=== PATIENT | male | born 1930 | race Caucasian/White ===

== ENCOUNTER 2016-07-27 12:01 | Inpatient (IN) | payer MEDICARE ==
[~2016-07-27] VITALS: Ht 170.2 cm; Wt 68.1 kg
--- NOTE | ~2016-07-27 | HP ---
ADMIT: 07/27/2016 RM/LOC: [facility] MR#: [id number] 2620 [facility] [address] [place] [id number] [place] [address] History and Physical SEX: M AGE: 85 : 1930 DATE OF SERVICE: 07/27/2016 CHIEF COMPLAINT: Third-degree AV block. HISTORY OF PRESENT ILLNESS: Ilia is an 85-year-old, white male, who normally resides at the [facility] in [place], [place], who happened to be in [place] today to see the Wound Care doctor and his eye doctor. 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 He was subsequently transferred to the emergency room where workup showed him to have third-degree AV block by EKG. Hemodynamically, he was stable and minimally asymptomatic. He noted just a little bit of dizziness, but has otherwise denied any chest pain, dyspnea on exertion, chest heaviness, orthopnea, PND, lower extremity swelling or edema, cough. He also denies any vomiting, diarrhea, rash, fevers. He was subsequently admitted to the fourth floor PCU unit for further observation and management of his current cardiac condition. PAST MEDICAL HISTORY: Remarkable for, and this is obtained from old records at the [facility] in [place]. These include: 1. Spinal stenosis. 2. Gout. 3. Macular degeneration. 4. 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 5. Gastroesophageal reflux disease. 6. Recent urinary tract infection requiring ciprofloxacin through 07/29/2016. 7. Depression. PAST SURGICAL HISTORY: Suprapubic catheter. SOCIAL HISTORY: He currently resides at the [facility]. He is wheelchair-bound. It should be noted that he is a poor historian, and so obtaining detailed history and some of this is difficult. ALLERGIES: INCLUDE LEVAQUIN AND PROTONIX. MEDICATIONS: His outpatient medications include: 1. A\T\D ointment applied to the buttocks daily p.r.n. 2. Cipro 250 mg p.o. b.i.d. for 10 days to be completed on 07/29/2016. 3. Cough drops daily p.r.n. 4. Debrox drops 3 drops in the left ear at bedtime on . 5. Dulcolax 10 mg suppository daily p.r.n. constipation. 6. Dulcolax 5 mg p.o. daily. 7. Iron sulfate 325 mg daily. 8. Fleets enema rectally daily p.r.n. 9. An eye vitamin. 10.Keflex 250 mg p.o. at bedtime for urinary prophylaxis. 11.Lasix 20 mg daily. ADMIT: 07/27/2016 RM/LOC: [address] [place] [address] MR#: [id number] [address] [place] [phone] [place] [address] History and Physical SEX: M AGE: 85 : 1930 12.Lidocaine 2% applied to the buttocks q.12 p.r.n. 13.Loperamide 2 mg q.8 hours p.r.n. 14.Claritin 10 mg daily p.r.n. 15.Maalox 15-30 mL q.4 hours p.r.n. 16.Milk of magnesia 30 mL daily p.r.n. 17.Mineral oil 15 mg b.i.d. 18.Famotidine 20 mg b.i.d. 19.Remeron 30 mg at bedtime. 20.Tylenol 650 mg q.4 p.r.n. 21.Robitussin DM 10 mL q.4 p.r.n. FAMILY HISTORY: Noncontributory. REVIEW OF SYSTEMS: As per HPI. All others are reviewed and are negative. PHYSICAL EXAMINATION: VITAL SIGNS: His blood pressure is 124/38, pulse 38, respirations 16, temp 97.0, O2 saturation is 94% on room air. GENERAL: He is awake, alert, no acute distress, though he is a poor historian. HEENT: Normocephalic, atraumatic. NECK: Supple. No lymphadenopathy. No thyromegaly. No JVD. HEART: Regular, markedly bradycardic. No murmurs. LUNGS: Clear to auscultation bilaterally. ABDOMEN: Soft, nontender, and nondistended. No rebound guarding or masses. He does have a suprapubic catheter noted to be in place. EXTREMITIES: No cyanosis, clubbing, or edema. LABORATORY AND X-RAY DATA: EKG done through the emergency department does show a third-degree AV block. CBC shows a white count of 4, hemoglobin 11.7, and a platelet of 166. INR is 1.2. Chest x-ray, minimal left basilar opacity, probable atelectasis. CMP without clinically significant abnormalities. CK is 31. ProBNP is 744. Troponin is less than 0.015. TSH 2.1. Free T4 1.3. ASSESSMENT: 1. Third-degree AV block. ADMIT: 07/27/2016 RM/LOC: 413 [facility] MR#: [id number] [address] [place] [id number] [place] [address] History and Physical SEX: M AGE: 85 : 1930 2. Wheelchair bound. 3. Spinal stenosis. 4. Suprapubic catheter. 5. Sacral decubitus. 6. Depression. PLAN: MAURISIO has already been consulted and seen the patient. Echocardiogram is pending. Plan at this time will be to maintain Ilia on RAYA'S and SCD's. He will be monitored on telemetry. We will have Social Work and PT/OT consult. A decision is pending on whether or not he is a candidate for a pacemaker. Further management will be dependent on clinical course and [facility] recommendations. Russ Porras MD/ hui JOB #: [id number] CC: Russ Porras, Attending Physician Russ Porras, Family Physician
--- NOTE | ~2016-07-27 | EEP ---
Initial Pacemaker Generator Implant Report Demographics Patient Name SUE MORILLO Jr Gender Male Patient Number [id number] Race Visit Number [id number] Ethnicity Corporate ID Room Number 413 Accession Number [id number] Height 175.26 cm Date of 1930 Weight 72.12 kg Age 85 year(s) BSA 1.87 m Referring Physician Chandrika Garcia MD BMI 23.48 kg/m Implanting Physician Chandrika Garcia MD Date of Study 07/28/2016 Assisting Physician Performing Physician Chandrika Garcia MD The procedure was explained in detail to the patient. Risks, complications and alternative treatments were reviewed. Written consent was obtained. Medications reviewed with patient prior to procedure. Conclusions Implantable Device Summary Summary Successful Dual Chamber Pacemaker implantation. Recommendations A chest X-ray and pacemaker check should be performed in the morning. A wound check should be performed in 7 days. Complications No complications. Procedure Procedure Type Pacemaker:Initial Insertion (generator and leads), Dual Lead PM Insert A&V Leads Indications AV block complete. Procedure Description The patient was brought to the electrophysiology laboratory in a fasting state non sedated state. A baseline ECG was recorded. Informed consent was obtained in the written and verbal form after the risks and benefits were explained. The patient had no further questions and agreed to proceed. A grounding pad was placed on the patient's left thigh. A defibrillator was configured to deliver shocks via self-adhesive lateral defibrillator pads. The planned puncture-incision site(s) were clipped and prepped with ChloraPrep and draped in the usual sterile manner. Conscious sedation, supplemental oxygen, and pain control medications were delivered by a registered nurse under physician guidance. Surface ECG rhythm, blood pressure measurement, and pulse oximetry were monitored throughout the procedure. 2 % Lidocaine with bupivacaine was used in the infraclavicular area and an incision was made. Subclavian access was obtained and guidewires were placed into the SVC. 2 % Lidocaine with bupivacaine was used inferiorly to the incision. Blunt dissection anterior to the Pectoralis Fascia was used to form the pacemaker pocket. Over one wire, an intravenous sheath and dilator were placed in the superior vena cava under fluoroscopic vision. Through the sheath, the ventricular lead was then placed into the right ventricular apex under fluoroscopic vision and tested. The sheath was removed. The lead was sutured to the Pectoralis fascia using non-absorbable suture. Over the other wire, an intravenous sheath and dilator were placed in to the superior vena cava under fluoroscopic vision. Through the sheath, the atrial lead was then placed in the right atrium under fluoroscopic vision and tested. The sheath was removed. The lead was sutured to the Pectoralis Fascia using non-absorbable sutures. The leads were then connected to the pulse generator and screwed tight. The pocket was irrigated with antibiotic solution. The lead(s) and pulse generator were then placed into the pacemaker pocket. The incision was then closed. It was closed using 2-0 Vicryl for the deep and intermediate layer and 4-0 Vicryl for the subcuticular layer. A sterile dressing was applied. The patient tolerated the procedure well and was returned to the nursing unit in stable condition. Devices and Leads Devices + + + +--------+------+ +--------+ !Identification!Action !Location !Device !Serial!Implant !Comments! ! ! ! !name !# !date ! ! + + + +--------+------+ +--------+ !New implant !Implanted !Left !BORISO![id number]!07/28/2016! ! ! ! !Subclavicular!MRI DR ! ! ! ! ! ! ! !L111 ! ! ! ! + + + +--------+------+ +--------+ Leads + + +---------+ +------+ +---------+ !Identification!Action !Location !Lead name !Serial!Implant !Comments ! ! ! ! ! !# !date ! ! + + +---------+ +------+ +---------+ !New implant !Implanted !RA !PACER LEAD![id number]!07/28/2016! ! ! ! !appendage!FINELINE ! ! ! ! ! ! ! !II 52CM ! ! ! ! ! ! ! !LEAD ! ! ! ! ! ! ! !(POLY) ! ! ! ! + + +---------+ +------+ +---------+ !New implant !Implanted !RV septum!PACER LEAD![id number]!07/28/2016! ! ! ! ! !INGEVITY ! ! ! ! ! ! ! !MRI 59 CM ! ! ! ! + + +---------+ +------+ +---------+ Leads Measured and Programmed Data + +---------+ +---------+ +---------+ + +--- ----+ !Lead !Sensing Amplitude !Threshold (V) !Pulse Width (ms) !Impendence!Current! ! !(mV) ! ! !(Ohms) !(mA) ! + +---------+ +---------+ +---------+ + +--- ----+ ! !Measured !Programmed !Measured !Programmed !Measured !Programmed ! ! ! + +---------+ +---------+ +---------+ + +--- ----+ !RA !2.5 !0.5 !0.3 !3.5 !0.5 !0.5 !380 !0.8 ! !appendage ! ! ! ! ! ! ! ! ! + +---------+ +---------+ +---------+ + +--- ----+ !RV septum ! !2.5 !0.6 !3.5 !0.5 !0.5 !882 !0.7 ! + +---------+ +---------+ +---------+ + +--- ----+ Device Programming Bradycardia Zone +-------+--------+--------+--------+ + +------+--------+ !Pacing !Mode !Lower !Upper !Paced AV !Sensed AV !PVARP !VRP (ms)! !Mode !Switch !Rate !Rate !Interval !Interval !(ms) ! ! ! ! !(ppm) !(ppm) !(ms) !(ms) ! ! ! +-------+--------+--------+--------+ + +------+--------+ !DDDR !On !60 !120 !200 !160 !330 !250 ! +-------+--------+--------+--------+ + +------+--------+ Medical History Allergies - Other:(levofloxacin & pantoprazole). Admission Data Admission Date: 07/27/2016 Admission Time: 14:39 Insurance Payors:Medicare. Hospital Status:Inpatient. Procedure Data Procedure Date:07/28/2016Start:10:45End:11:40 Fluoroscopy Time: 6:06 minutes. Estimated blood loss:15 ml. Contrast Material - Isovue 370,20 ml. Procedure Medications Order and Administration + + +---------+---------+ !Time !Medication !Dosage !Route ! + + +---------+---------+ !07/28/2016 10:28 !Ancef !2 g !I.V. ! + + +---------+---------+ !07/28/2016 10:28 !Sodium Chloride !10 ml !I.V. ! + + +---------+---------+ !07/28/2016 10:28 !Oxygen !2 l/min !NC ! + + +---------+---------+ !07/28/2016 10:43 !Versed !2 mg !I.V. ! + + +---------+---------+ !07/28/2016 10:43 !Fentanyl !50 mcg !I.V. ! + + +---------+---------+ !07/28/2016 10:43 !Sodium Chloride !10 ml !I.V. ! + + +---------+---------+ !07/28/2016 10:46 !Oxygen !4 l/min !NC ! + + +---------+---------07/28/2016 10:48 !Oxygen !6 l/min !NC ! + + +---------+---------+ !07/28/2016 11:10 !Ancef !1 g !Pocket ! + + +---------+---------+ Approach - Incision site: Left infraclavicular.The subclavian vein (stick) was cannulated.The incision was closed using 3-0 Vicryl for the deep and intermediate layers and 4-0 Vicryl for the subcuticular layer. A sterile dressing was applied. Discharge Data Discharge Date: 07/31/2016 Signatures
--- NOTE | ~2016-07-27 | WND ---
ADMIT: 07/27/2016 RM/LOC: 413 [facility] MR#: [id number] 2620 [facility] [address] [place] [phone] [place] [address] Wound Care Clinic SEX: M AGE: 85 : 1930 DATE OF VISIT: 07/30/2016 TIME IN: 1315 hours. TIME OUT: 1325 hours. REASON FOR CONSULT: Chronic coccyx wound. HISTORY OF PRESENT ILLNESS: Ilia is an 85-year-old male, who normally resides in the correction in [place], [place], who happened to be in [place] today to see his eye doctor, and he was found to have a heart rate of 34. He was sent to the emergency room and admitted for third degree AV block and he was found on admission to have some ulcers to his coccyx area. Ilia tells me that he has had these for a long time. They are not currently causing him any pain. PAST MEDICAL HISTORY: Spinal stenosis, gout, macular degeneration, BPH with urinary retention, requiring suprapubic catheterization, gastroesophageal reflux disease, recent urinary tract infection requiring ciprofloxacin through 07/29/2016, and depression. PAST SURGICAL HISTORY: Suprapubic catheter. SOCIAL HISTORY: He currently resides in the [facility]. He is wheelchair bound. 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 ALLERGIES: Include Levaquin and Protonix. MEDICATIONS: 1. A and D ointment to his buttocks p.r.n. 2. Cipro. 3. Cough drop. 4. Debrox. 5. Dulcolax. 6. Iron sulfate. 7. Fleet Enema. 8. Keflex. 9. Lasix. 10.Lidocaine. 11.Loperamide. 12.Claritin. 13.Maalox. 14.Milk of magnesia. 15.Mineral oil. 16.Famotidine. 17.Remeron. 18.Tylenol. 19.Robitussin. ADMIT: 07/27/2016 RM/LOC: 413 [facility] MR#: [id number] 2620 [facility] [address] [place] [phone] [place] [address] Wound Care Clinic SEX: M AGE: 85 : 1930 FAMILY HISTORY: Noncontributory. REVIEW OF SYSTEMS: Please see HPI. All other systems were negative other than that stated in the HPI. PHYSICAL EXAMINATION: Assessment of his buttock reveals a deep tissue injury left side of the gluteal cleft. It measures 1 cm circumferential. There is no induration or fluctuance noted. No periwound erythema. Also on the left side of the gluteal cleft above the deep tissue injury, he has a full- thickness wound that measures 1.5 cm in length x 1 cm in width x 0.2 cm in depth. ASSESSMENT: 1. Deep tissue injury, left of the gluteal cleft. 2. 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 PLAN: Continue with the Sensi-Care to the ulcers and DTI on the left side of his gluteal cleft 4 times daily and offload with pressure reducing cushions. Also, need to reposition him every 2 hours while he is in bed. He is going to be discharged back to the correction tomorrow. I would like to thank Dr. Porras for allowing us to participate in his care. Evelyn Brady, RE/ hui JOB #: [id number] CC: Russ Porras, Attending Physician Russ Porras, Family Physician
--- NOTE | ~2016-07-27 | ECH ---
Transthoracic Echocardiography Report (TTE) Demographics Patient Name ILIA ROGERS JR Date of Study 07/27/2016 Patient Number [id number] Visit Number [id number] Date of 1930 Room Number 413 Accession Number [id number] Gender Male Age 85 year(s) Referring Marga Duke Stone [employer] Sander Kaylin Wyatt Physician [facility] Physician Interpreting Chandrika Garcia MD Orthopedic Shoes Salesperson Physician Supervising Ordering Physician Marga Duke MD/LEONIDAS ROBERTS Nurse Stress [employer] Operations Intelligence Chief Conclusions Summary Limited exam. Doppler not performed. Technically adequate exam. The estimated left ventricular ejection fraction is 60%. There is mild aortic regurgitation by color Doppler. Trivial tricuspid regurgitation by color Doppler. There is moderate pulmonary hypertension. The pulmonary pressure (RVSP) is 55 mmHg. The aortic root appears moderately dilated. The maximum diameter measures 4.1 cm. Procedure Type of Study TTE procedure:Echo Limited SF. Procedure Date Date: 07/27/2016 Start: 12:52 PM Technical Quality: Adequate visualization Indications:Symptomatic Bradycardia. Appropriate Use Criteria: 9 Height: 69 inches Weight: 159 pounds BSA: 1.87 m Rhythm: Irregular BP: 131/39 mmHg M-Mode/2D Measurements LV Diastolic Dimension: 4.5 cm LV Systolic Dimension: 3.73 cm LV Septum Diastolic: 0.81 cm LV PW Diastolic: 0.64 cm AO Root Dimension: 4.07 cm LA Dimension: 4.73 cm RV Diastolic Dimension: 3.49 cm LA volume: 63.48 ml LA volume index: 34 ml/m RV Base: 3.5 cm RV Mid: 2.4 cm TAPSE: 3.4 cm Doppler Measurements AV Peak Velocity: 1.5 m/s AV Peak Gradient: 9 mmHg AV Mean Gradient: 4 mmHg LVOT Peak Velocity: 1 m/s TR Velocity:3.6 m/s Estimated PASP: 54.84 mmHg TR Gradient:51.84 mmHg Estimated RAP:3 mmHg Estimated RVSP: 55 mmHg RA Area: 16.03 cm Findings Left Ventricle Normal left ventricle size and function. Diastolic function not assessed. Right Ventricle Normal right ventricle structure and function. Left Atrium Normal left atrial size. Right Atrium Normal right atrial size. Mitral Valve Normal mitral valve structure and function. Trivial mitral regurgitation by color Doppler. Aortic Valve The aortic valve is mildly sclerotic. There is mild aortic regurgitation by color Doppler. Tricuspid Valve Normal appearing tricuspid valve. Trivial tricuspid regurgitation by color Doppler. There is moderate pulmonary hypertension. The pulmonary pressure (RVSP) is 55 mmHg. Pulmonic Valve The pulmonic valve is not well visualized. Pericardial Effusion No evidence of pericardial effusion. Miscellaneous The aortic root appears moderately dilated. The maximum diameter measures 4.1 cm. Ascending aorta not well visualized. Pleural Effusion No evidence of pleural effusion. Contractility Score LV regional wall motion:(0-Non visualized 1-Normal 2-Hypokinesis 3-Akinesis 4-Dyskinesis 5-Aneurysm) Signature
[2016-08-01] MEDS ORDERED: DULCOLAX-DPS5 MG PO (19:22)
[2016-08-01] MEDS ORDERED: FEOSOL-DPS325 MG PO (19:22)
[2016-08-01] MEDS ORDERED: KEFLEX250 MG PO (19:22)
[2016-08-01] MEDS ORDERED: PEPCID DPS20 MG PO (19:23)
[2016-08-01] MEDS ORDERED: CLARITIN DPS10 MG PO (19:23)
[2016-08-01] MEDS ORDERED: REMERON DPS30 MG PO (19:23)
[2016-08-01] MEDS ORDERED: DEBROX OTIC15 ML AS (19:23)
[2016-08-01] MEDS ORDERED: MILK OF MAGNESI10 ML PO (19:24)
[2016-08-01] MEDS ORDERED: MAALOX DPS30 ML PO (19:24)
[2016-08-01] MEDS ORDERED: COLACE-DPS100 MG PO (19:24)
[2016-08-01] MEDS ORDERED: TYLENOL DPS325 MG PO (19:24)
[2016-08-01] MEDS ORDERED: [UNRECOGNIZED DRUG - OTHER] TP (19:25)
[2016-08-01] MEDS ORDERED: DULCOLAX-DPS10 MG PR (19:25)
--- NOTE | 2016-08-02 08:44 | ER ---
ADMIT: 07/27/2016 RM/LOC: 413 [facility] MR#: [id number] 2620 [facility] [address] [place] [phone] [place] [address] Emergency Room Report SEX: M AGE: 85 : 1930 DATE: 07/27/2016 BRIEF ADDENDUM: Please see my T-sheet for complete review of systems, past medical history, and physical exam. CHIEF COMPLAINT: Low heart rate. HISTORY OF PRESENT ILLNESS: This is a pleasant 85-year-old white male, who presents to us after being seen at the [place] prior to arrival. States he was there for an ophthalmology and wound care visit. When they took his pulse in the wound care clinic, they found it to be in the 30s and subsequently transferred him to us for further evaluation and management. On speaking with the patient, he relates for the past 3 days he has noticed some increased lightheadedness, dizziness, and weakness. The patient is chronically wheelchair bound. He is a complete lift transfers. Denies any recent fever, chills, chest pain, shortness of breath. He does have a chronic coccyx ulcer for which he is currently being treated with antibiotics as well as wound care. Does have some chronic bilateral edema as well as an indwelling suprapubic catheter secondary to neurogenic bladder. PAST MEDICAL HISTORY: Spinal stenosis, constipation, chronic anemia, GERD, lower leg edema, history of a GI bleed. SURGICAL HISTORY: Includes prostatectomy, cataract, bladder resection, and hernia repairs. SOCIAL HISTORY: He does have an allergy to Levaquin. SOCIAL HISTORY: He was a former smoker many years ago. He is a detention resident in [place], [place]. However, is a retired rancher. COURSE IN THE EMERGENCY ROOM: The patient was seen and examined. Initial heart rate 34, blood pressure 131/39, respirations 15, temp 97.8, 94% on room air. He is in no acute distress. He is alert. He answers questions appropriately. His heart is certainly bradycardic, but no murmurs, gallops, or rubs. No evidence of any JVD. There is trace edema bilaterally in the legs. Abdomen is nontender. Did get a chest x-ray on him, negative for anything acute. EKG shows complete heart block, ventricular rate of 34. No ST-T changes or Q wave abnormalities. Did get some basic labs on him, fairly unremarkable. No electrolyte abnormalities. TSH was within normal limits. Did consult with Dr. Gresham at 12:30 who recommended further evaluation with 2D echocardiogram which was completed prior to his arrival. He did speak with the patient. Recommendation is admission for possible permanent pacemaker placement. I did phone Dr. Porras [facility] call for admission. ADMIT: 07/27/2016 RM/LOC: 413 [facility] MR#: [id number] [address] [id number] [place] [address] Emergency Room Report SEX: M AGE: 85 : 1930 IMPRESSION: 1. Symptomatic bradycardia with complete heart block. 2. Chronic coccyx ulcer. 3. Neurogenic bladder with indwelling suprapubic catheter. 4. Chronic obstructive pulmonary disease. 5. Gastroesophageal reflux disease. 6. Chronic anemia. 7. Lower leg edema. DISPOSITION: Patient will be admitted to the care of Dr. Porras with consult to Cardiology Dr. Gresham for potential pacemaker placement. The patient will be admitted to the hospital in guarded condition. GONZALO Kumari / Rob Sanz MD / hui JOB #: [id number] CC: Russ Porras MD, Attending Physician Russ Porras MD, Family Physician
--- NOTE | 2016-08-13 08:25 | DS ---
ADMIT: 07/27/2016 RM/LOC: [facility] MR#: [id number] [address] [address] [place] [address] Discharge Summary SEX: M AGE: 85 : 1930 ADMISSION DATE: 07/27/2016 DISCHARGE DATE: 07/31/2016 ADMITTING DIAGNOSES: 1. Third-degree AV block, minimally symptomatic. 2. Chronically wheelchair bound. 3. Spinal stenosis. 4. Chronic indwelling suprapubic catheter. 5. Sacral decubitus ulcer, stage I. 6. Depression. DISCHARGE DIAGNOSES: 1. Third-degree AV block, minimally symptomatic, status post pacemaker placement postop day three. 2. Chronically wheelchair bound. 3. Leukopenia. 4. Macrocytic anemia. 5. Stage I decubitus ulcer. 6. Chronic indwelling suprapubic urinary catheter. 7. Depression. 8. Vitamin B12 deficiency. CONSULTATIONS: 1. Patrick Gresham M.D., [facility], consulted 07/27/2016. 2. Wound Care consulted 07/30/2016. 3. Hematology Oncology consulted 07/30/2016. PROCEDURES: Placement of pacemaker on 07/29/2016. HISTORY AND PHYSICAL EXAM: Ilia is a very pleasant 85-year-old white male who presented to the [facility] Emergency Department after being sent by his wound care doctor and his eye doctor with a pulse down in the 34 range. He was complaining of being dizzy and a little lightheaded with this. He does not have any chest pain, dyspnea, heaviness, orthopnea, PND, lower extremity swelling, or cough. On his initial exam, his vitals were stable. He was hemodynamically stable. He is afebrile. EKG showed third- degree atrioventricular block. CBC showed a mild leukopenia and a mild anemia with a macrocytosis. Chest x-ray showed some atelectasis. Cardiac enzymes were negative. The patient was admitted to the telemetry floor for further observation. HOSPITAL COURSE: MAURISIO was consulted at admission and a decision was made to place a pacemaker on him on 07/29/2016, which he tolerated well. By the time of discharge, all of his dizziness had resolved. It should be noted that at the time of admission, he came in, he did have a stage I decubitus ulcer with obviously no breakage in the skin. Wound Care was consulted to follow for that. On around 07/29 to 07/30, Ilia's white count was trending down into the 2 range. His hemoglobin remained anemic and macrocytic. Vitamin B12 and folic acid were within normal range although on the mildly low side for his ADMIT: 07/27/2016 RM/LOC: 413 [facility] MR#: [id number] [address] [place] [place] [id number] [place] [address] Discharge Summary SEX: M AGE: 85 : 1930 B12. Serum iron studies were unremarkable and a peripheral smear did not show any evidence of blasts or immature cells. Hematology Oncology consult was obtained and further management was planned. Workup was planned as an outpatient. At the time of his discharge, a methylmalonic acid level was pending and he has been started on vitamin B12 injections. By 07/31/2016, he was stable and felt safe for discharge back to the [facility]. DISCHARGE CONDITION: Fair. DISPOSITION: He will be discharged back to the [facility]. DISCHARGE MEDICATIONS: Discharge medications will include: 1. Dulcolax 5 mg p.o. daily and 10 mg suppository daily p.r.n. constipation. 2. Iron 325 mg daily. 3. Keflex 250 mg at HS for urinary prophylaxis. 4. Pepcid 20 mg b.i.d. 5. Remeron 30 mg at HS. 6. Debrox three drops q. at 9:00 a.m. 7. Claritin 10 mg daily. 8. Colace 100 mg b.i.d. 9. Maalox 15-30 mL q.6 p.r.n. 10.Milk of magnesia 10 mL daily p.r.n. 11.Tylenol 650 mg q.4 p.r.n. 12.A and D ointment applied to his decubitus ulcer daily per Wound Care recommendations. 13.Eye vitamin daily. 14.Fleets enemas daily p.r.n. 15.Lomotil q.8 p.r.n. 16.Vitamin B12 injections 1000 mcg IM daily for an additional six days, then 1000 mcg weekly for four weeks, then 1000 mcg monthly thereafter. FOLLOW UP: I have asked that he follow up with his primary care doctor, Dr. Frias, sometime in the next one week. I have asked that he follow up with Hematology/Oncology in the next one to two weeks as well as with MAURISIO in the next one to two weeks. I have [facility] His diet will be cardiac diet. He is a full code. Russ Porras MD/ njv JOB #: [id number] CC: Russ Porras MD, Attending Physician Russ Porras MD, Family Physician
--- NOTE | 2016-08-16 10:56 | CO ---
ADMIT: 07/27/2016 RM/LOC: 413 [facility] MR#: [id number] [address] [address] [place] [address] Consultation SEX: M AGE: 85 : 1930 DATE OF CONSULTATION: 07/27/2016 ATTENDING PHYSICIAN: Russ Porras CONSULTING PHYSICIAN: Patrick Gresham MD REASON FOR CONSULT: Bradycardia and heart block. HISTORY OF PRESENT ILLNESS: Ilia is an 85-year-old with no prior cardiac history. 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 He says for the past 3 days, he has had some lightheadedness but no syncope. Denies angina or chest pain. He has not had any palpitations. He is essentially wheelchair and bed ridden. He is unable to ambulate for the past 2 years and he has a chronic indwelling Cochran. 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 He came to the OR for an eye exam and apparently to see Wound Care. They did dilate his eyes and examined them. During that evaluation, he was noted to be bradycardic. He was sent to the [place] [facility]. EKG here shows complete heart block with a ventricular rate of 34 beats per minute. The QRS is narrow and there is poor R- wave progression. Normal axis. I did review with him and he says he has had some mild lightheadedness over the past several days but no elizabeth syncope. He has not had shortness of breath, orthopnea, or PND. He has some mild chronic edema. No angina or palpitations. He denies any recent fevers. 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 PAST MEDICAL HISTORY: The patient says he does not have any medical allergies but the chart says Levaquin. MEDICATIONS: Include: 1. Tylenol 325-650 every 4 hours as needed. 2. Guaifenesin. 3. Pepcid 20 mg b.i.d. 4. Lasix 20 mg every morning. 5. Claritin 10 mg as needed. 6. Milk of magnesia as needed. 7. Remeron 15 mg at bedtime. 8. Polyethylene glycol as needed. 9. He is on iron sulfate 325 daily. 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 SURGERIES: Include several prior hernia surgeries and a distant appendectomy. FAMILY HISTORY: Negative for premature coronary disease. He thinks his father of heart failure at an elderly age. He has one sister who is 92 years old ADMIT: 07/27/2016 RM/LOC: 413 [facility] MR#: [id number] [address] [place] [id number] [place] [address] Consultation SEX: M AGE: 85 : 1930 and still relatively healthy. His mother's cause of is unknown. SOCIAL HISTORY: He lives at the detention in [place]. 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 He has been over the past year. He has 3 adopted children. He quit smoking many years ago and no routine alcohol or illicit drug use. REVIEW OF SYSTEMS: As per the HPI. Otherwise reviewed and noncontributory. I did a full 10-point review of systems. PHYSICAL EXAMINATION: VITAL SIGNS: His blood pressure is 117/52, his heart rate in the 30s and regular, respirations 18, he is afebrile. GENERAL: He is elderly appearing, somewhat frail, but alert and oriented. He is quiet. EYES: The pupils are markedly dilated. Sclerae clear. No xanthelasmas. ENT: Oral mucosa is pink and moist. No jugular venous distention. I could not hear any carotid bruits. No significant JVD. HEART: Distant. It is regular, markedly bradycardic. I do not hear any significant murmurs, rubs, or gallops. CHEST: Poor respiratory effort. Lungs are clear to auscultation. ABDOMEN: Soft and nontender. EXTREMITIES: There is hair loss over lower extremities with mild edema bilaterally. I did briefly visualize the wound over his coccyx that did not appear markedly open to me but apparently they have been working on it for year and a half. PSYCHIATRIC: Alert and oriented. Mood and affect are appropriate. MUSCULOSKELETAL: He is flexed at the knees and nonambulatory. LABORATORY DATA: White count is 4.0, hemoglobin 11.7, and platelet count 166,000. Potassium 4.2, creatinine 0.8, AST and ALT are 20 and 15 respectively. GFR is calculated at 81. CK is 31. Troponins negative. TSH is 2.11. INR is 1.24. A 12-lead EKG shows complete heart block with a regular sinus rate, narrow QRS escape with rate in the 30s. Chest x-ray is pending. IMPRESSION: 1. Complete heart block with presyncope. 2. 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 3. Chronic indwelling Cochran catheter. 4. Chronic anemia. 5. Spinal stenosis. 6. Gastroesophageal reflux disease. ADMIT: 07/27/2016 RM/LOC: 413 [facility] MR#: [id number] [address] [place] [id number] [place] [address] Consultation SEX: M AGE: 85 : 1930 RECOMMENDATIONS: He is minimally symptomatic at this point, but he has been having some lightheadedness over the past 3 days. He does have a narrow QRS complex and he is hemodynamically stable currently. I did discuss with him that he would benefit from a permanent pacemaker. I discussed the procedure with him including the potential risk and benefits. Potential risks including pneumothorax, cardiac puncture, complications from anesthesia, and infection. He states understanding and is willing to proceed if we deem it necessary. In preparation, I am going to check an echo. I am also going to check with the pharmacy to make sure that the eyedrops that were given at the OR today could not have contributed to his bradycardia. Otherwise, he is not on any AV silvio blocking agents nor any obvious thyroid disease. Patrick Gresham MD/ hui JOB #: [id number] CC: Russ Porras, Attending Physician Russ Porras, Family Physician
--- NOTE | 2016-08-23 17:08 | CO ---
ADMIT: 07/27/2016 RM/LOC: 413 [facility] MR#: [id number] [address] [address] [place] [address] Consultation SEX: M AGE: 85 : 1930 DATE OF CONSULTATION: 07/30/2016 ATTENDING PHYSICIAN: Russ Porras MD CONSULTING PHYSICIAN: Sabas Chiu MD HISTORY: Mr. Romero is an 85-year-old, gentleman who normally resides at the [facility], has been admitted to hospital with a slow heart rate and found to have third-degree AV block. He has had a pacemaker placed during this hospitalization. It has been noted that he has pancytopenia and the Hematology consult has been requested. The patient is a poor historian. As much as the story obtained, there does not seem to be any prior hematologic problems. He does not give any petechiae, ecchymosis, or other problems. Seems to be recovering from his recent pacemaker. We will be doing further workup for his pancytopenia. PAST MEDICAL HISTORY: Positive for spinal stenosis, gout, macular degeneration, BPH. PAST SURGICAL HISTORY: Positive for suprapubic catheter. SOCIAL HISTORY: Currently resides at the [facility], wheelchair- bound. It should be noted that he is a poor historian. CURRENT MEDICATIONS: 1. Cipro. 2. Dulcolax. 3. Iron sulfate. 4. Fleets enema. 5. Keflex. 6. Lasix. 7. Lidocaine. 8. Loperamide. 9. Claritin. 10.Famotidine. FAMILY HISTORY: Not contributory. REVIEW OF SYSTEMS: Negative for nausea, vomiting, diarrhea. Positive for recent follow-ups for heart rate, decreased mentation, tiredness, fatigue. Rest of the systems are unremarkable. PHYSICAL EXAMINATION: VITAL SIGNS: Temperature 98, blood pressure 100/80, pulse rate 88, respirations 20. HEAD, EARS, EYES, NOSE, THROAT EXAM: Normocephalic, atraumatic. Extraocular muscles intact. NECK: Supple. No JVD. No lymph nodes palpable. CHEST: Sounds clear to auscultation and percussion. HEART: Normal S1, S2. No S3, S4. No murmurs. ADMIT: 07/27/2016 RM/LOC: 413 [facility] MR#: [id number] [address] [address] [place] [address] Consultation SEX: M AGE: 85 : 1930 ABDOMEN: Soft, nontender. No organomegaly. Bowel sounds positive. EXTREMITIES: No cyanosis, clubbing, or edema. LABORATORY DATA: WBC count 3.6, hemoglobin 10.7, platelets 152, MCV 104. ASSESSMENT AND PLAN: This is a pleasant, 85-year-old gentleman, comes with the anemia and it looks like this could be nutritional iron deficiency. I will plan on giving a chance to B12 injections and then plan to see him outpatiently to made further recommendations. It is quite possible that he is not filled in the B12. I will check the methylmalonic acid and then the B12 levels. I will do the rest of the workup and plan to revisit with him as per his discharge as outpatiently. I went over about the prognosis, expectations, side effects. All the questions were answered. This encounter took 40 minutes; 25 minutes was [id number]. Sabas Chiu MD/ hui JOB #: [id number] CC: Russ Porras MD, Attending Physician Russ Porras MD, Family Physician
== END 2016-07-31 12:17 | DRG 242 ==
LOC: ER 12:01 → 4PCU 14:39
PROVIDERS: ADMIT Family Medicine
PROC: 02HL3JZ Insertion of Pacemaker Lead into Left Ventricle, Percutaneous Approach (ICD-10-PCS; principal; 2016-07-28)
PROC: 0JH606Z Insertion of Pacemaker, Dual Chamber into Chest Subcutaneous Tissue and Fascia, Open Approach (ICD-10-PCS; principal; 2016-07-28)
PROC: 02HK3JZ Insertion of Pacemaker Lead into Right Ventricle, Percutaneous Approach (ICD-10-PCS; principal; 2016-07-28)
DX: I44.2 Atrioventricular block, complete (principal); L89.323 Pressure ulcer of left buttock, stage 3; J44.9 Chronic obstructive pulmonary disease, unspecified; N31.9 Neuromuscular dysfunction of bladder, unspecified; D64.9 Anemia, unspecified; M48.00 Spinal stenosis, site unspecified; K59.00 Constipation, unspecified; E53.8 Deficiency of other specified B group vitamins; K21.9 Gastro-esophageal reflux disease without esophagitis; R60.9 Edema, unspecified; H35.30 Unspecified macular degeneration; N40.1 Benign prostatic hyperplasia with lower urinary tract symptoms; R33.8 Other retention of urine; F32.9 Major depressive disorder, single episode, unspecified; Z87.440 Personal history of urinary (tract) infections; Z99.3 Dependence on wheelchair; Z87.891 Personal history of nicotine dependence